=== PATIENT | female | born 1955 | race Caucasian/White ===

== ENCOUNTER 2019-07-17 17:21 | Emergency (ER) | payer OTHER, SELFPAY ==
[2019-07-17 17:25] VITALS: BP 124/61; PULSE 93; RESP 18; TEMP 36.6; O2SAT 100
--- NOTE | 2019-07-17 17:58 | ED.FEMALEGU ---
HPI - Female Genitourinary General Chief complaint: Urogenital-Female Stated complaint: UTI SYMPTOMS Time Seen by Provider: 07/17/19 17:46 Source: patient Mode of arrival: ambulatory Limitations: no limitations History of Present Illness HPI Narrative: 63-year-old female presents for evaluation of symptoms that developed today at 2 PM. She is reporting urinary frequency, urgency, dysuria, one episode of hematuria with blood on the toilet paper. She has experienced some light left-sided abdominal pain and left flank pain. Denies any fever, nausea, vomiting, diarrhea, abnormal swelling, headache, weakness, confusion. History of urinary tract infections in the past. No prior history of renal stones, renal disease. Related Data Home Medications Medication Instructions Recorded Confirmed Mucinex 07/17/19 cevimeline 1 cap PO DAILY 07/17/19 07/17/19 esomeprazole magnesium 40 mg PO DAILY 07/17/19 07/17/19 fluoxetine [Prozac] 40 mg PO DAILY 07/17/19 07/17/19 mometasone [Nasonex] 2 spray INTRANASAL DAILY 07/17/19 07/17/19 triamterene-hydrochlorothiazid 1 tablet PO QAM 07/17/19 07/17/19 vortioxetine [Trintellix] 20 mg PO DAILY 07/17/19 07/17/19 Allergies Allergy/AdvReac Type Severity Reaction Status Date / Time erythromycin base Allergy Unknown Abdominal Verified 07/17/19 17:36 Pain Penicillins Allergy Unknown Hives Verified 07/17/19 17:36 Sulfa (Sulfonamide Allergy Unknown Hives Verified 07/17/19 17:36 Antibiotics) Review of Systems Review of Systems: Narrative: CONSTITUTIONAL: Denies fever, chills, weight loss, or sweats. CARDIOVASCULAR: Denies chest pain, palpitations, or edema. RESPIRATORY: Denies cough or dyspnea. GASTROINTESTINAL: Denies nausea, vomiting, diarrhea. Reports mild left-sided abdominal pain GENITOURINARY: Reports dysuria, hematuria, urinary frequency, malordous urine SKIN: Denies rash or itching. MUSCULOSKELETAL: Denies joint pain, myalgia, swelling. Reports mild left flank pain. NEUROLOGIC: Denies headache, numbness, or weakness. PSYCHIATRIC: Denies anxiety or depression. All systems reviewed & are unremarkable except as noted in HPI and below PMFSH Comments At the time of my signature, I agree with nursing past medical, surgical, social and family history. There is no relevant family history pertinent to the presenting complaint. Exam Narrative: Exam Narrative: GENERAL: No distress, well appearing, well nourished, alert and calm HEAD: Normocephalic, atraumatic. EYES: Pupils equal, round. Extraocular movements intact. Conjunctivae without redness or drainage. EARS: Tympanic membranes without erythema. TM landmarks intact with good light reflex. Ear canals without discharge. MOUTH: Mucous membranes moist. No lesions. No cyanosis. Dentition grossly normal. THROAT: Oropharynx without signs erythema, exudates or lesions. Tonsils not enlarged. NECK: Supple. No lymphadenopathy. RESPIRATORY: Airway patent. Chest clear to auscultation bilaterally. Breath sounds equal bilaterally. No retractions. CARDIOVASCULAR: Regular rate and rhythm. No murmurs, rubs, gallops, or clicks. Capillary refill <2 seconds. GASTROINTESTINAL: Soft, nontender, non-distended. Bowel sounds normoactive. No masses. No organomegaly. No CVA tenderness MUSCULOSKELETAL: Range of motion grossly normal in all four extremities. Strength grossly normal in all four extremities. No edema. No swelling SKIN: Color normal. Warm and dry. No rashes. NEURO: Alert. Motor intact in all extremities. Muscle tone normal. Course Course Emergency Course: Obtained specimen for urinalysis and culture. Vital Signs Vital signs: Vital Signs Temperature 97.9 F 07/17/19 17:25 Pulse Rate 93 07/17/19 17:25 Respiratory Rate 18 07/17/19 17:25 Blood Pressure 124/61 07/17/19 17:25 Pulse Oximetry 100 07/17/19 17:25 Temperature 97.9 F 07/17/19 17:25 Pulse Rate 93 07/17/19 17:25 Respiratory Rate 18 07/17/19 17:25 Blood Pressure
== END 2019-07-17 18:12 | disposition home or self-care (01) ==
PROVIDERS: Emergency Provider Nurse Practitioner
DX: N39.0 Urinary tract infection, site not specified (principal); K21.9 Gastro-esophageal reflux disease without esophagitis; F32.9 Major depressive disorder, single episode, unspecified; M41.9 Scoliosis, unspecified
CPT/HCPCS: 81003; 87077; 87086; 87088; 87186; 99213; G0463

== ENCOUNTER 2019-08-07 17:30 | Emergency (ER) | payer OTHER, SELFPAY ==
[2019-08-07 17:32] VITALS: BP 126/82; PULSE 103; RESP 20; TEMP 38.4; O2SAT 96
--- NOTE | 2019-08-07 17:36 | ED.URI ---
HPI - URI/Sore Throat General Chief Complaint: Upper Respiratory Infection Stated Complaint: fever/chills/cough/body aches Time Seen by Provider: 08/07/19 17:37 Source: patient and RN notes reviewed History of Present Illness HPI Narrative: Patient is a 63-year-old female that presents the urgent care with complaints of body aches, fever, chills, nonproductive cough, intermittent nausea. Patient was recently on Cipro and Macrobid for UTI and diverticulitis and finished the medication approximately 2 days ago. Patient states that her flulike symptoms started last night. Patient has not taken anything [id number] for her symptoms. No other acute complaints. No acute distress noted. Patient read the plan of care. Related Data Home Medications Medication Instructions Recorded Confirmed cevimeline 1 cap PO DAILY 07/17/19 07/17/19 esomeprazole magnesium 40 mg PO DAILY 07/17/19 07/17/19 fluoxetine [Prozac] 40 mg PO DAILY 07/17/19 07/17/19 triamterene-hydrochlorothiazid 1 tablet PO QAM 07/17/19 07/17/19 vortioxetine [Trintellix] 20 mg PO DAILY 07/17/19 07/17/19 estradiol [Yuvafem] mcg VAGINAL 08/07/19 mometasone [Nasonex] INTRANASAL 08/07/19 vortioxetine [Trintellix] mg 08/07/19 Allergies Allergy/AdvReac Type Severity Reaction Status Date / Time erythromycin base Allergy Unknown Abdominal Verified 07/17/19 17:36 Pain Penicillins Allergy Unknown Hives Verified 07/17/19 17:36 Sulfa (Sulfonamide Allergy Unknown Hives Verified 07/17/19 17:36 Antibiotics) Review of Systems Review of Systems: Narrative: CONSTITUTIONAL: Reports a fever, chills, sweats EYES: Denies visual changes, redness, or discharge. ENT: Reports of sinus congestion, postnasal drainage, rhinorrhea CARDIOVASCULAR: Denies chest pain, palpitations, or edema. RESPIRATORY: Reports of mild intermittent cough without dyspnea or wheezing GASTROINTESTINAL: Reports of intermittent nausea without vomiting, diarrhea, abdominal pain GENITOURINARY: Denies dysuria or hematuria. SKIN: Denies rash or itching. MUSCULOSKELETAL: Denies back pain, joint pain; reports of body aches NEUROLOGIC: Denies headache, numbness, or weakness. All other systems reviewed are negative, except as documented in HPI. PMFSH Comments At the time of my signature, I reviewed and agree with the nursing past medical, surgical, social, and family history. There is no relevant family history pertinent to the patient complaint. Exam Narrative: Exam Narrative: GENERAL: This is a well-nourished, well-developed patient, appears fatigued and slightly flushed HEAD: normocephalic, atraumatic. EYES: PERRL. Sclera clear/white. Vision is grossly intact. EARS: External ears normal, auditory canals clear and without drainage, TMs normal without perforation. Hearing grossly intact. NOSE: External nose normal with no obvious nasal discharge, bilateral erythemic nares with clear rhinorrhea THROAT: Mucous membranes moist, posterior pharynx clear. Moderate postnasal drainage NECK: Neck supple, non-tender without lymphadenopathy CARDIOVASCULAR: Regular rate and rhythm without murmurs, gallops, or rubs. RESPIRATORY: Clear to auscultation. Breath sounds equal bilaterally. No wheezes, rales, or rhonchi. SKIN: warm, intact with no suspicious lesions or rash, good texture and turgor. NEURO: awake, alert, and oriented to person, place and time. There were no obvious focal neurologic abnormalities. EXTREMITIES: No clubbing, cyanosis, or edema. Course Vital Signs Vital signs: Vital Signs Temperature 101.2 F H 08/07/19 17:32 Pulse Rate 103 H 08/07/19 17:32 Respiratory Rate 20 08/07/19 17:32 Blood Pressure 126/82 08/07/19 17:32 Pulse Oximetry 96 08/07/19 17:32 Temperature 101.2 F H 08/07/19 17:32 Pulse Rate 103 H 08/07/19 17:32 Respiratory Rate 20 08/07/19 17:32 Blood Pressure 126/82 08/07/19 17:32 Pulse Oximetry 96 08/07/19 17:32 Reviewed MDM - URI/Sore Throat MDM Narrati
== END 2019-08-07 18:03 | disposition home or self-care (01) ==
PROVIDERS: Emergency Provider Nurse Practitioner Family
DX: J10.1 Influenza due to other identified influenza virus with other respiratory manifestations (principal); K21.9 Gastro-esophageal reflux disease without esophagitis; F32.9 Major depressive disorder, single episode, unspecified
CPT/HCPCS: 87804; 99213; G0463

== ENCOUNTER 2019-10-21 11:20 | Emergency (ER) | payer OTHER, SELFPAY ==
[2019-10-21 11:31] VITALS: BP 146/57; PULSE 83; RESP 18; TEMP 36.6; O2SAT 100
--- NOTE | 2019-10-21 11:39 | ED.GENADULT ---
HPI - General Adult General Chief complaint: Urogenital-Female Stated complaint: possible Uti Time Seen by Provider: 10/21/19 11:39 Source: patient Mode of arrival: ambulatory Limitations: no limitations History of Present Illness HPI narrative: 63-year-old female patient presents to the [facility] with complaints of urinary symptoms that started this morning. Patient states she has had some lower abdominal discomfort, pain with urination, and urgency and frequency of urination. Patient denies any fevers, nausea, vomiting or diarrhea. Denies any low back pain. Denies any chest pain or shortness of breath. Patient states that she gets these often and does feel like one is starting at this time. Denies taking anything for her symptoms today. Related Data Home Medications Medication Instructions Recorded Confirmed cevimeline 1 cap PO DAILY 07/17/19 10/21/19 esomeprazole magnesium 40 mg PO DAILY 07/17/19 10/21/19 fluoxetine [Prozac] 40 mg PO DAILY 07/17/19 10/21/19 triamterene-hydrochlorothiazid 1 tablet PO QAM 07/17/19 10/21/19 vortioxetine [Trintellix] 20 mg PO DAILY 07/17/19 10/21/19 estradiol [Yuvafem] 10 mcg DAILY 08/07/19 10/21/19 mometasone [Nasonex] 50 mcg INTRANASAL DAILY 08/07/19 10/21/19 Allergies Allergy/AdvReac Type Severity Reaction Status Date / Time erythromycin base Allergy Unknown Abdominal Verified 10/21/19 11:24 Pain Penicillins Allergy Unknown Hives Verified 10/21/19 11:24 Sulfa (Sulfonamide Allergy Unknown Hives Verified 10/21/19 11:24 Antibiotics) Review of Systems Review of Systems: Narrative: CONSTITUTIONAL: Denies fever, chills, or sweats. EYES: Denies visual changes, redness, or discharge. ENT: Denies rhinorrhea, congestion, sore throat, or otalgia. CARDIOVASCULAR: Denies chest pain, palpitations, or edema. RESPIRATORY: Denies cough or dyspnea. GASTROINTESTINAL: Positive lower abdominal discomfort, nausea, vomiting, or diarrhea. GENITOURINARY: Denies dysuria or hematuria. Positive pain with urination, urgency and frequency that started this morning. SKIN: Denies rash or itching. MUSCULOSKELETAL: Denies back pain, joint pain, or myalgia. NEUROLOGIC: Denies headache, numbness, or weakness. PSYCHIATRIC: Denies anxiety or depression. PMFSH Social History Social History Gender identity (if verbalized by the patient): Female Comments At the time of my signature I agree with nursing past medical history, surgical, social, and family history. There is no relevant family history pertinent to the presenting complaint. Exam Narrative: Exam Narrative: GENERAL: Well-appearing, well-nourished, and in no acute distress. HEAD: Normocephalic, atraumatic. EYES: PERRLA and EOMI. ENT: Nares clear, no rhinorrhea or epistaxis. Mucous membranes moist. NECK: Supple. No lymphadenopathy CHEST: Clear to auscultation. No respiratory distress. HEART: Regular rate and rhythm. No murmur heard. Normal peripheral pulses. ABDOMEN: Soft, nontender, nondistended, normal active bowel sounds. No CVA tenderness on percussion. EXTREMITIES: Normal range of motion. No edema. SKIN: Warm, dry, no rash. NEURO: No focal deficits. Alert and oriented x3. Course Vital Signs Vital signs: Vital Signs Temperature 36.6 C 10/21/19 11:31 Pulse Rate 83 10/21/19 11:31 Respiratory Rate 18 10/21/19 11:31 Blood Pressure 146/57 H 10/21/19 11:31 Pulse Oximetry 100 10/21/19 11:31 Temperature 36.6 C 10/21/19 11:31 Pulse Rate 83 10/21/19 11:31 Respiratory Rate 18 10/21/19 11:31 Blood Pressure 146/57 H 10/21/19 11:31 Pulse Oximetry 100 10/21/19 11:31 Vital signs reviewed. The patient has been informed that they may have pre-hypertension or Hypertension based on a BP reading in the department. I recommend that the patient call the primary care provider listed on their discharge instructions or a physician of their choice this week to arrange
== END 2019-10-21 12:19 | disposition home or self-care (01) ==
PROVIDERS: Emergency Provider Nurse Practitioner Family
DX: N30.01 Acute cystitis with hematuria (principal); K21.9 Gastro-esophageal reflux disease without esophagitis; Z96.652 Presence of left artificial knee joint
CPT/HCPCS: 81003; 87077; 87086; 87088; 87186; 99213; G0463

== ENCOUNTER 2020-02-09 09:07 | Emergency (ER) | payer OTHER, SELFPAY ==
[2020-02-09 09:19] VITALS: BP 134/66; PULSE 81; RESP 20; TEMP 36.9; O2SAT 99
--- NOTE | 2020-02-09 09:33 | ED.FEMALEGU ---
HPI - Female Genitourinary General Chief complaint: Urogenital-Female Stated complaint: POS UTI Time Seen by Provider: 02/09/20 09:25 Source: patient and RN notes reviewed Mode of arrival: ambulatory Limitations: no limitations History of Present Illness HPI Narrative: Patient presents today complaining of dysuria, frequency, urgency, hematuria, lower abdominal pressure since yesterday. Denies back pain or fever. History of UTIs most recently in June and September of this year and was seen at [facility]. He was most recently treated with Augmentin. She took [id number] Azo yesterday, which did provide some relief. She had a right-sided knee replacement 6 weeks ago and is doing well. MD elicited complaint: UTI Related Data Home Medications Medication Instructions Recorded Confirmed cevimeline 1 cap PO DAILY 07/17/19 02/09/20 esomeprazole magnesium 40 mg PO DAILY 07/17/19 02/09/20 fluoxetine [Prozac] 40 mg PO DAILY 07/17/19 02/09/20 triamterene-hydrochlorothiazid 1 tablet PO QAM 07/17/19 02/09/20 vortioxetine [Trintellix] 20 mg PO DAILY 07/17/19 02/09/20 estradiol [Yuvafem] 10 mcg DAILY 08/07/19 02/09/20 Allergies Allergy/AdvReac Type Severity Reaction Status Date / Time erythromycin base Allergy Unknown Abdominal Verified 02/09/20 09:17 Pain Penicillins Allergy Unknown Hives Verified 02/09/20 09:17 Sulfa (Sulfonamide Allergy Unknown Hives Verified 02/09/20 09:17 Antibiotics) Review of Systems Review of Systems: Narrative: CONSTITUTIONAL: Denies body aches, fever, chills, or sweats. EYES: Denies visual changes, redness, or discharge. ENT: Denies rhinorrhea, congestion, sore throat, or otalgia. CARDIOVASCULAR: Denies chest pain, palpitations, or edema. RESPIRATORY: Denies cough or dyspnea. GASTROINTESTINAL: Denies abdominal pain, nausea, vomiting, or diarrhea. GENITOURINARY: + Dysuria, hematuria, frequency, urgency, lower abdominal pressure. SKIN: Denies rash, itching, or wounds. MUSCULOSKELETAL: Denies back pain, joint pain, or myalgia. NEUROLOGIC: Denies headache, numbness, tingling, or weakness. PSYCH: Denies depression or anxiety. [facility] Past Medical History Medical History (Updated 02/09/20 @ 09:42 by Samira Diaz, SALLIE, ) Depression GERD (gastroesophageal reflux disease) Hypertension Surgical History Surgical History (Updated 02/09/20 @ 09:41 by Samira Diaz, SALLIE, ) History of bilateral knee replacement Social History Social History Gender identity (if verbalized by the patient): Female Comments At time of signature, I have reviewed and agree with nursing past medical, surgical, social and family history unless otherwise noted. Please see nursing chart for further information. There is no relevant family history pertinent to the presenting complaint Exam Narrative: Exam Narrative: GENERAL: Well-appearing, well-nourished, and in no acute distress. HEAD: Normocephalic, atraumatic. EYES: EOMI. No redness or drainage. Conjunctivae normal. ENT: Mucous membranes pink and moist. NECK: Normal AROM. CHEST: No respiratory distress. Clear to auscultation. HEART: Regular rate and rhythm. No murmur appreciated. Normal peripheral pulses. ABDOMEN: Soft, nontender, nondistended, normal active bowel sounds. -CVAT MUSCULOSKELETAL: No bony tenderness. EXTREMITIES: Normal range of motion. No edema. SKIN: Warm, dry, no rash. Capillary refill normal. Normal skin turgor. NEURO: No focal deficits. Alert and oriented x3. Gait steady. PSYCH: Normal affect. No signs of depression or anxiety. Course Vital Signs Vital signs: Vital Signs Temperature 98.4 F 02/09/20 09:19 Pulse Rate 81 02/09/20 09:19 Respiratory Rate 02/09/20 09:19 Blood Pressure 134/66 02/09/20 09:19 Pulse Oximetry 99 02/09/20 09:19 Temperature 98.4 F 02/09/20 09:19 Pulse Rate 81 02/09/20 09:19 Respiratory Rate 02/09/20
== END 2020-02-09 09:39 | disposition home or self-care (01) ==
PROVIDERS: Emergency Provider Nurse Practitioner
DX: N30.01 Acute cystitis with hematuria (principal); F32.9 Major depressive disorder, single episode, unspecified; K21.9 Gastro-esophageal reflux disease without esophagitis; I10 Essential (primary) hypertension; Z96.653 Presence of artificial knee joint, bilateral
CPT/HCPCS: 81003; 87077; 87086; 87088; 87186; 99213; G0463

== ENCOUNTER 2020-07-17 08:51 | Emergency (ER) | payer OTHER, SELFPAY ==
[2020-07-17 09:10] VITALS: BP 92/75; PULSE 64; RESP 16; TEMP 36.9; O2SAT 98
--- NOTE | 2020-07-17 09:36 | ED.URI ---
HPI - URI/Sore Throat General Chief Complaint: Upper Respiratory Infection Stated Complaint: swollen glands/throat pressure/congestion Source: patient and RN notes reviewed Limitations: no limitations History of Present Illness HPI Narrative: The patient, a non-smoker/nondrinker previously mostly healthy, presents with scratchy throat and neck. Patient states her past history is remarkable for having had Covid late last year. She now has 1/2 week history of mild voice hoarseness, submental lymph node swelling, and mostly night time nonproductive cough. Symptoms are mild, better yesterday-- so she took her first Covid vaccine, worse with position changes. No fever, hoarseness, trismus, toothache, loss of taste/smell, CP, wheezing/sneezing, S OB, rash, N/V/D. Vital signs are remarkable for being afebrile, blood pressure systolic 92, which she says she has had in the past Related Data Home Medications Medication Instructions Recorded Confirmed cevimeline 1 cap PO DAILY 07/17/19 07/17/20 esomeprazole magnesium 40 mg PO DAILY 07/17/19 07/17/20 fluoxetine [Prozac] 40 mg PO DAILY 07/17/19 07/17/20 triamterene-hydrochlorothiazid 1 tablet PO QAM 07/17/19 07/17/20 vortioxetine [Trintellix] 20 mg PO DAILY 07/17/19 07/17/20 estradiol [Yuvafem] 10 mcg DAILY 08/07/19 07/17/20 guaifenesin [Mucinex] 600 mg PO Q12H PRN 07/17/20 07/17/20 mometasone [Nasonex] 2 spray INTRANASAL DAILY PRN 07/17/20 07/17/20 Allergies Allergy/AdvReac Type Severity Reaction Status Date / Time erythromycin base Allergy Unknown Abdominal Verified 07/17/20 08:57 Pain Penicillins Allergy Unknown Hives Verified 07/17/20 08:57 Sulfa (Sulfonamide Allergy Unknown Hives Verified 07/17/20 08:57 Antibiotics) Review of Systems Review of Systems: Narrative: General/Constitutional: No weight loss,fever Eyes: N0: Redness,discharge Ears/Nose/Throat: No: Epistaxis,ear discharge Respiratory: Denies: Hemoptysis Gastrointestinal: No Vomiting, Bleeding-rectal Skin: No Lumps, eruption Neurologic: No Focal Weakness,Sz Hematologic: Denies: Petechiae/Purpura Psychiatric: No: Suicida ideationl All Other Systems: Reviewed and Negative PMFSH Past Medical History Medical History (Updated 07/17/20 @ 10:26 by Aren Ibrahim MD) Depression GERD (gastroesophageal reflux disease) Hypertension Surgical History Surgical History (Updated 02/09/20 @ 09:41 by Samira Diaz, SALLIE, ) History of bilateral knee replacement Social History Social History Gender identity (if verbalized by the patient): Female Comments At time of signature, agree with nursing past medical, surgical, social and family history. There is no relevant family history pertinent to the presenting complaint Exam Narrative: Exam Narrative: General Appearance: Well appearing, Well nourished EYE: PERRLA, Conjunctiva clear Ears: Auditory canal normal, TM normal Nose: Rhinorrhea, Mucousal erythema Mouth/Throat: MM moist, Uvula midline, Pharyngeal erythema w/o exudate Neck: Supple, bilateral submental adenopathy Respiratory: No respiratory distress, Breath sounds equal, Clear to auscultation Cardiovascular: No JVD Musculoskeletal: Non tender, Normal strength Skin: Warm, Dry Neurological: A&O x3, CN II-XII intact Psychiatric: Normal mood, Normal affect Course Vital Signs Vital signs: Vital Signs Temperature 98.5 F 07/17/20 09:10 Pulse Rate 64 07/17/20 09:10 Respiratory Rate 16 07/17/20 09:10 Blood Pressure 92/75 L 07/17/20 09:10 Pulse Oximetry 98 07/17/20 09:10 Temperature 98.5 F 07/17/20 09:10 Pulse Rate 64 07/17/20 09:10 Respiratory Rate 16 07/17/20 09:10 Blood Pressure 92/75 L 07/17/20 09:10 Pulse Oximetry 98 07/17/20 09:10 MDM - URI/Sore Throat Lab Data Labs: Strep Screen Presumptive Negative *(Reference Range: Negat
== END 2020-07-17 09:48 | disposition home or self-care (01) ==
PROVIDERS: Emergency Provider Emergency Medicine
DX: R59.1 Generalized enlarged lymph nodes (principal); F32.9 Major depressive disorder, single episode, unspecified; K21.9 Gastro-esophageal reflux disease without esophagitis; I10 Essential (primary) hypertension; Z86.16 Personal history of COVID-19; Z96.653 Presence of artificial knee joint, bilateral
CPT/HCPCS: 87081; 87880; 99213; G0463

== ENCOUNTER → 2021-08-25 13:42 | Outpatient (CLI) | payer OTHER, SELFPAY ==
--- NOTE | ~2021-08-25 | US_ITS ---
EXAMINATION: US carotid duplex BI EXAM DATE: 08/25/2021 14:01 INDICATION: Arterial blockage . TECHNIQUE: Grayscale, color and pulsed Doppler images of the cervical carotid arteries were obtained . The degree of vessel stenosis is placed in one of the following categories: normal, <50% stenosis, 50-69% stenosis, >=70% stenosis but less than near-occlusion, near-occlusion, or occlusion. Note that percent stenosis relative to normal distal artery lumen diameter is indirectly measured from velocit y measurements as described by Devonte, et al. Radiology 2003; 229:340-346. There is no prior study fo r comparison. FINDINGS: RIGHT SIDE: Right common carotid artery peak systolic velocity (PSV in cm/s): 74 Right bulb/internal carotid artery peak systolic velocity (PSV in cm/s): 89 Right internal carotid artery end diastolic velocity (EDV in cm/s): 35 Right ICA/CCA peak systolic ratio: 1.4 Right external carotid artery peak systolic velocity (PSV in cm/s): 186 Right vertebral artery antegrade flow: yes There is no focal plaque identified. LEFT SIDE: Left common carotid artery peak systolic velocity (PSV in cm/s): 100 Left bulb/internal carotid artery peak systolic velocity (PSV in cm/s): 123 Left internal carotid artery end diastolic velocity (EDV in cm/s): 44 Left ICA/CCA peak systolic ratio: 1.7 Left external carotid artery peak systolic velocity (PSV in cm/s): 153 Left vertebral artery antegrade flow: yes There is no focal plaque identified. IMPRESSION: 1. Normal right internal carotid artery. 2. Normal left internal carotid artery. Reviewed, dictated and finalized at location B.
== END ==
PROVIDERS: Visit Provider Chiropractor
DX: I70.90 Unspecified atherosclerosis (principal)
CPT/HCPCS: 93880

== ENCOUNTER 2021-09-13 23:32 | Emergency (ER) | payer OTHER, SELFPAY ==
--- NOTE | ~2021-09-13 | CT_ITS ---
EXAMINATION: CT abdomen pelvis w con EXAM DATE: 09/14/2021 04:14 INDICATION: RLQ pain, suspect appendicitis TECHNIQUE: Spiral CT of the abdomen and pelvis was performed following intravenous injection of 100 m L Omnipaque 350. Axial, coronal and sagittal images of the abdomen and pelvis were reviewed. The do se-length product (DLP) for this examination was 332.71 mGy-cm. The exposure was tailored according to patient size (auto mA exposure control), and iterative reconstruction (ASIR) was used as additiona l dose reduction technique. There is no prior study for comparison. FINDINGS: The liver, spleen, adrenal glands and pancreas are unremarkable. Gallbladder is unremarkab le. No biliary obstruction. Portal and splenic veins are patent. Kidneys enhance symmetrically. T here is no hydronephrosis. The uterus is unremarkable. The bladder is unremarkable. There is no retroperitoneal or pelvic lymphadenopathy. There is mild scattered arteriosclerotic disease. The appendix is identified, origin indicated on axial image 106, is normal in diameter and appearance . Mild to moderate number of scattered colonic diverticula are present. There is some inflammation, f at stranding along the antimesenteric side of the cecal base, some wall thickening of the cecum. Diff erential diagnosis includes uncomplicated acute diverticulitis and inflammatory adenocarcinoma. No me senteric lymphadenopathy. There is small sliding gastroesophageal hiatal hernia. There is expected amount of colonic stool. No free intraperitoneal gas. The heart is normal in size. There are no pericardial or pleural effu sions. The lung bases are unremarkable. There are no osteoblastic or osteolytic lesions identified. There is moderate thoracolumbar dextroscoliosis. IMPRESSION: 1. Scattered colonic diverticula with mild cecal wall thickening and inflammation. Differential diag nosis includes both acute uncomplicated diverticulitis and inflammatory adenocarcinoma. Normal appen taniya. 2. Small gastroesophageal hiatal hernia. Reviewed, dictated and finalized at location A. IMPRESSION: 1. Scattered colonic diverticula with mild cecal wall thickening and inflammat ion. Differential diagnosis includes both acute uncomplicated diverticulitis an d inflammatory adenocarcinoma. Normal appendix. 2. Small gastroesophageal hiatal hernia.
[2021-09-13 23:55] VITALS: BP 120/51; PULSE 95; RESP 14; TEMP 36.5; O2SAT 99
[2021-09-14 00:08] LABS: Basophils Absolute Auto 0.1 K/mm3 (0.0-0.1); Basophils Percent Auto 0.5 % (0.2-1.2); Eosinophils Absolute Auto 0.4 K/mm3 (0-0.3); Eosinophils Percent Auto 2.7 % (0-4.4); Hematocrit 42.1 % (37.0-47.0); Hemoglobin 13.3 g/dL (12.0-15.0); Immature Granulocyte Absolute 0.05 K/mm3 (0.00-0.031); Immature Granulocyte Percent A 0.3 % (0-0.5); Lymphocytes Absolute Auto 2.28 K/mm3 (0.9-3.2); Lymphocytes Percent Auto 15.1 % (18.3-44.2); Mean Corpuscular HGB Conc 31.6 g/dl (32-36); Mean Corpuscular Hemoglobin 30.5 pg (26-34); Mean Corpuscular Volume 96.6 fl (80-100); Mean Platelet Volume 9.6 fl (7.4-10.4); Monocytes Absolute Auto 1.2 K/mm3 (0.1-0.6); Monocytes Percent Auto 7.6 % (2.6-8.5); Neutrophils Absolute Auto 11.1 K/mm3 (1.3-6.7); Neutrophils Percent Auto 73.8 % (45.5-73.1); Platelet Count Result 356 k/mm3 (150-375); Red Blood Count 4.36 M/mm3 (4.2-5.4); Red Cell Distribution Width 13.1 % (11.5-14.5); White Blood Count 15.1 K/mm3 (4.5-10.0)
[2021-09-14 00:23] LABS: Alanine Aminotransferase 32 U/L (4-35); Albumin Level 4.7 g/dL (3.5-5.1); Alkaline Phosphatase 111 U/L (38-126); Anion Gap 11 mmol/L (8-16); Aspartate Amino Transferase 31 U/L (14-36); Bilirubin,Total 0.8 mg/dL (0.2-1.3); Blood Urea Nitrogen 23 mg/dL (7-17); Carbon Dioxide 27 mmol/L (22-30); Chloride 101 mmol/L (98-107); Estimated CRCL calculation 48 ml/min; Estimated Glomerular Filt Rate > 60; Glucose 160 mg/dL (65-110); Lipase 81 U/L (23-300); Potassium 3.5 mmol/L (3.4-5.0); Sodium 139 mmol/L (137-145)
[2021-09-14 00:34] LABS: Appearance Urine Slightly Cloudy (Clear); Bilirubin Urine Negative (Negative); Color Urine Yellow (Yellow); Glucose Urine UA Negative (Negative); Ketones Urine Negative (Negative); Leukocyte Esterase Ur Trace LEU/UL (Negative); Nitrate Urine Negative (Negative); Protein Urine Negative (Negative); Urobilinogen Urine 0.2 mg/dL (<2.0)
[2021-09-14 00:49] LABS: Bacteria Urine Trace /hpf; Mucus Urine Rare /lpf; Squamous Epithelial Cell Urine Many /hpf (Few); WBC Urine 21-30 /hpf
[2021-09-14 00:51] LABS: Add Urine Microscopic? YES; Blood Urine Trace-Intact (Negative)
[2021-09-14 03:17] VITALS: BP 122/66; PULSE 86; RESP 16; O2SAT 98
--- NOTE | 2021-09-14 03:36 | ED.ABDPAIN ---
HPI - Abdominal Pain General Chief Complaint: Abdominal Pain Stated Complaint: right ABD pain Time Seen by Provider: 09/14/21 03:28 Source: patient, family and RN notes reviewed Limitations: no limitations History of Present Illness HPI narrative: 65-year-old female presenting to the emergency department for evaluation of right lower quadrant pain. Patient states that her right lower quadrant pain started approximately 9 AM and was described as a tinge of pain. Patient states over the course of the day the pain has continued to worsen. Patient does report associated nausea and vomiting. Patient is still passing stool and denies any change in her bowel habits at this time. Patient does have history of endometriosis but denies any abdominal surgeries. Patient reports a family history of appendicitis. Related Data Home Medications Medication Instructions Recorded Confirmed cevimeline 1 cap PO DAILY 07/17/19 07/17/20 esomeprazole magnesium 40 mg PO DAILY 07/17/19 07/17/20 fluoxetine [Prozac] 40 mg PO DAILY 07/17/19 07/17/20 triamterene-hydrochlorothiazid 1 tablet PO QAM 07/17/19 07/17/20 vortioxetine [Trintellix] 20 mg PO DAILY 07/17/19 07/17/20 estradiol [Yuvafem] 10 mcg DAILY 08/07/19 07/17/20 guaifenesin [Mucinex] 600 mg PO Q12H PRN 07/17/20 07/17/20 mometasone [Nasonex] 2 spray INTRANASAL DAILY PRN 07/17/20 07/17/20 Allergies Allergy/AdvReac Type Severity Reaction Status Date / Time erythromycin base Allergy Unknown Abdominal Verified 09/14/21 03:18 Pain Penicillins Allergy Unknown Hives Verified 09/14/21 03:18 Sulfa (Sulfonamide Allergy Unknown Hives Verified 09/14/21 03:18 Antibiotics) Review of Systems Review of Systems: CONSTITUTIONAL: Denies fever, chills, or sweats. EYES: Denies visual changes, redness, or discharge. ENT: Denies rhinorrhea, congestion, sore throat, or otalgia. CARDIOVASCULAR: Denies chest pain, palpitations, or edema. RESPIRATORY: Denies cough or dyspnea. GASTROINTESTINAL: See HPI GENITOURINARY: Denies dysuria or hematuria. SKIN: Denies rash or itching. MUSCULOSKELETAL: Denies back pain, joint pain, or myalgia. NEUROLOGIC: Denies headache, numbness, or weakness. FORMERLY [facility] Past Medical History Medical History (Updated 09/15/21 @ 00:00 by Claudette Iyer) Depression GERD (gastroesophageal reflux disease) Hypertension Surgical History Surgical History (Updated 02/09/20 @ 09:41 by Smaira Diaz, SALLIE, ) History of bilateral knee replacement Social History Social History Gender identity (if verbalized by the patient): Female Exam Narrative: APPEARANCE: Well appearing, no pain, no distress, well-nourished. HEAD: normocephalic, atraumatic. EYES: PERRLA/EOMI, conjunctivae clear. NOSE: Normal no drainage RESPIRATORY: Airway patent, respirations nonlabored. Clear to auscultation bilaterally, no rales, rhonchi, wheezing. CARDIOVASCULAR: Regular rate and rhythm without murmurs rubs or gallops. ABDOMINAL: Soft abdomen, decreased bowel sounds, lower quadrant tenderness. Positive Rovsing sign MUSCULOSKELETAL: Moves all extremities. Strength/ROM intact. NEURO: Alert. Cranial nerves II through XII intact. Grossly intact SKIN: Warm, dry. Normal Color Course Course Emergency Course: Case discussed with GI on-call. They are comfortable with the patient having close follow-up with GI as outpatient. Patient is being treated for diverticulitis. Patient was updated on the results of the CT and labs. Patient was updated on the results of the CT scan including the possibility of adenocarcinoma. Patient was updated on reasons to return to the emergency department. All questions and concerns were addressed. Patient was well-appearing at time of discharge from the emergency department. Vital Signs Vital signs: Vital Signs Temperature 97.7 F 09/13/21 23:55 Pulse Rate 95 09/13/21 23:55 Respiratory Rate 14 09/13/21 23:55
[2021-09-14] MEDS: SODIUM CHLORIDE 0.9% IV 1,000 ML 999 ML IV CONT (03:54)
[2021-09-14] MEDS: HYDROmorphone HCL INJ (*CRX) 1 MG/ML SYR 0.5 MG IV PUSH (03:54)
[2021-09-14] MEDS: ONDANSETRON INJ 4 MG/2 ML VIAL IV PUSH (03:54)
[2021-09-14 04:59] VITALS: BP 120/54; PULSE 79; RESP 18; O2SAT 95
[2021-09-14 06:08] VITALS: BP 125/72; PULSE 77; RESP 18; O2SAT 97
[2021-09-14 06:45] VITALS: BP 106/67; PULSE 79; RESP 16; O2SAT 95
[2021-09-14 07:32] VITALS: BP 106/67; PULSE 73; RESP 16; O2SAT 98
== END 2021-09-14 07:33 | disposition home or self-care (01) ==
PROVIDERS: Emergency Provider Emergency Medicine
DX: K57.92 Diverticulitis of intestine, part unspecified, without perforation or abscess without bleeding (principal); I10 Essential (primary) hypertension; K21.9 Gastro-esophageal reflux disease without esophagitis; F32.A Depression, unspecified; Z96.653 Presence of artificial knee joint, bilateral; K44.9 Diaphragmatic hernia without obstruction or gangrene
CPT/HCPCS: 36415; 74177; 80053; 81001; 83690; 85025; 87086; 96361; 96374; 96375; 99284; J1170; J2405; J7030; Q9967

== ENCOUNTER 2023-11-01 15:43 | Outpatient (CLI) | payer MEDICARE, OTHER, SELFPAY ==
--- NOTE | ~2023-11-01 | XR_ITS ---
Lumbosacral Spine: AP and lateral views Clinical History: Pain Findings: There is 39 degree dextroscoliosis, apex at L3. There is severe facet arthropathy, especial ly at L3-L4, L4-L5, L5-S1. There is 9 mm anterolisthesis of L5 over S1. There is severe degenerative disc narrowing from L3 through S1. The sacroiliac joints are normally outlined. Impression: Dextroscoliosis and severe degenerative spondylosis, as detailed above. 9 mm anterolisthesis of L5 over S1. Reviewed, dictated and finalized at location M. Impression: Dextroscoliosis and severe degenerative spondylosis, as detailed above. 9 mm anterolisthesis of L5 over S1.
--- NOTE | ~2023-11-01 | XR_ITS ---
AP and lateral views of the right hip Clinical history: Pain Findings: No acute fracture or dislocation is seen. Osseous alignment is anatomic. Right hip joint sp manny probably intact. Soft tissues are unremarkable. Impression: No significant abnormality is seen. Evaluation of the right hip is suboptimal due to overlying pannus /patient body habitus. Reviewed, dictated and finalized at [facility]. Impression: No significant abnormality is seen. Evaluation of the right hip is suboptimal d ue to overlying pannus/patient body habitus.
== END 2023-11-01 15:44 ==
PROVIDERS: PCP Chiropractor; Visit Provider Chiropractor
DX: M43.06 Spondylolysis, lumbar region (principal); M41.87 Other forms of scoliosis, lumbosacral region
CPT/HCPCS: 72110; 73502

== ENCOUNTER 2023-11-09 07:14 | Outpatient (CLI) | payer MEDICARE, OTHER, SELFPAY ==
--- NOTE | ~2023-11-09 | MR_ITS ---
MRI of the lumbar spine Clinical History: Radiculopathy Technique: Axial T2-weighted images, and sagittal T1-weighted, T2-weighted, and T2 fat-sat images wer e acquired. Findings: There are bilateral L5 pars interarticularis defects, with 7 mm anterolisthesis of L5 over S1. There are type III Modic changes about the T12-L1 disc space. There are type I Modic changes abou t the L1-L2 disc space. No suspicious marrow signal abnormality seen. At L1-L2, there is minimal disc bulge and moderate facet arthropathy. No central canal stenosis. Ther e is moderate left neural foraminal narrowing. Right neural foramen preserved. At L2-L3, there is no disc bulge or herniation. There is moderate facet arthropathy. No central canal stenosis or definite neural foraminal narrowing. At L3-L4, there is advanced degenerative disc narrowing. There is minimal disc bulge with advanced fa cet arthropathy. No central canal stenosis. There is moderate left neural foraminal narrowing. Right neural foramen. At L4-L5, there is minimal disc bulge with severe facet arthropathy. No central canal stenosis. There is mild right neural foraminal narrowing. Left neural foramen preserved. At L5-S1, there is severe degenerative disc narrowing with disc bulge/uncovering and severe facet art hropathy. No drake central canal stenosis. There is severe right neural foraminal narrowing, and mode rate to severe left neural foraminal narrowing. Paravertebral soft tissues are unremarkable. Impression: Bilateral L5 pars interarticular is defects, with 7 mm anterolisthesis of L5 over S1. Moderate degenerative spondylosis, as above, with multilevel neural foraminal narrowing. Reviewed, dictated and finalized at [facility]. Impression: Bilateral L5 pars interarticular is defects, with 7 mm anterolisthesis of L5 ov er S1. Moderate degenerative spondylosis, as above, with multilevel neural foraminal n arrowing.
== END 2023-11-09 07:15 ==
LOC: MICIMG 07:17
PROVIDERS: PCP Chiropractor
DX: M51.36 Other intervertebral disc degeneration, lumbar region (principal); M48.061 Spinal stenosis, lumbar region without neurogenic claudication; M54.17 Radiculopathy, lumbosacral region; R26.9 Unspecified abnormalities of gait and mobility; M51.26 Other intervertebral disc displacement, lumbar region; M43.16 Spondylolisthesis, lumbar region
CPT/HCPCS: 72148

== ENCOUNTER 2024-11-26 14:22 | Emergency (ER) | payer MEDICARE, SELFPAY ==
[2024-11-26 14:36] VITALS: BP 145/119; PULSE 92; RESP 16; TEMP 36.6; O2SAT 98
[2024-11-26 14:48] VITALS: BP 124/82
[2024-11-26 14:48] LABS: EDUAAPPEAR Cloudy; EDUABILI Negative (Negative); EDUABLOOD 2+ (Negative); EDUACOLOR1 Yellow; EDUAGLUCOSE Negative (Negative); EDUAKETONE Negative (Negative); EDUALEUKO 1+ (Negative); EDUANITRATE Negative (Negative); EDUAPH 6.0; EDUAPROTEIN Negative (Negative); EDUASPGRAVITY 1.020; EDUAUROBILI 0.2
--- NOTE | 2024-11-26 15:03 | ED.FEMALEGU ---
HPI - Female Genitourinary General Chief complaint: Urogenital-Female Stated complaint: UTI SYMPTOMS Time Seen by Provider: 11/26/24 14:40 Source: patient Mode of arrival: ambulatory Limitations: no limitations History of Present Illness HPI Narrative: 69-year-old female presents with complaint of dysuria, urgency, frequency, abdominal bloating starting yesterday. Afebrile. Denies nausea vomiting. No flank pain. Patient concern for urinary tract infection. All systems reviewed and negative except as noted above. Related Data Home Medications ?Medication ?Instructions ?Recorded ?Confirmed ?Last Taken ?Type esomeprazole magnesium 40 mg 40 mg PO DAILY 07/17/19 11/26/24 Unknown History capsule,delayed release fluoxetine 40 mg capsule (Prozac) 40 mg PO DAILY 07/17/19 11/26/24 Unknown History triamterene 37.5 1 tablet PO QAM 07/17/19 11/26/24 Unknown History mg-hydrochlorothiazide 25 mg tablet estradiol 10 mcg vaginal tablet 10 mcg vaginal DAILY 08/07/19 11/26/24 Unknown History (Yuvafem) mometasone 50 mcg/actuation nasal 2 spray intranasal DAILY PRN 07/17/20 11/26/24 Unknown History spray (Nasonex) Congestion ashwagandha Complex 11/26/24 Unknown History calcium lactate 11/26/24 Unknown History cataplex B-Care 11/26/24 Unknown History xgujprfrmffe-cavweezceshm-xuyltdzvp 1 applic topical DAILY 11/26/24 11/26/24 Unknown History 0.01 %-4 %-0.05 % topical cream (Tri-Yohana) guaifenesin 1,200 mg tablet, 1,200 mg PO BID 11/26/24 11/26/24 Unknown History extended release 12 hr (Mucus Relief ER) neuro Regenex 11/26/24 Unknown History nutrofol PO DAILY 11/26/24 Unknown History oliprima EPA/DHA 11/26/24 Unknown History rhodiola & Schisandra 11/26/24 Unknown History solray D3 & K12 Accokeek 11/26/24 Unknown History ther worx protect 11/26/24 Unknown History whole body collagen 11/26/24 Unknown History Allergies Allergy/AdvReac Type Severity Reaction Status Date / Time trimethoprim Allergy Mild rash Verified 11/26/24 14:41 erythromycin base Allergy Unknown Abdominal Verified 11/26/24 14:30 Pain Penicillins Allergy Unknown Hives Verified 11/26/24 14:30 Sulfa (Sulfonamide Allergy Unknown Hives Verified 11/26/24 14:30 Antibiotics) Review of Systems Review of Systems: CONSTITUTIONAL: Denies fever, chills, or sweats. EYES: Denies visual changes, redness, or discharge. ENT: Denies rhinorrhea, congestion, sore throat, or otalgia. CARDIOVASCULAR: Denies chest pain, palpitations, or edema. RESPIRATORY: Denies cough or dyspnea. GASTROINTESTINAL: Denies abdominal pain, nausea, vomiting, or diarrhea. GENITOURINARY: Reports dysuria, urgency, frequency. Denies hematuria. SKIN: Denies rash or itching. MUSCULOSKELETAL: Denies back pain, joint pain, or myalgia. NEUROLOGIC: Denies headache, numbness, or weakness. PSYCHIATRIC: Denies anxiety or depression. All other systems reviewed are negative, except as documented in HPI. FOR[facility]LY [facility] Past Medical History Medical History (Updated 11/26/24 @ 14:48 by Dot Salinas NP) Depression GERD (gastroesophageal reflux disease) Hypertension Surgical History Surgical History (Updated 02/09/20 @ 09:41 by Samira Diaz, SALLIE, ) History of bilateral knee replacement Social History Social History Gender identity (if verbalized by the patient): Female Comments At time of signature, agree with nursing past medical, surgical, social and family history. There is no relevant family history pertinent to the presenting complaint. Exam Narrative: GENERAL: This is a well-nourished, well-developed patient, in no apparent distress. HEAD: normocephalic, atraumatic. EYES: PERRL. Sclera clear/white. Vision is grossly intact. EARS: External ears normal NOSE: External nose normal NECK: Neck supple, non-tender without lymphadenopathy, masses or thyromegaly. CARDIOVASCULAR: Regular rate and rhythm without murmurs, gallops, or rubs. RESPIRATORY: Clear to auscultation. Breath sounds equal bilaterally. No wheezes, rales, or rhonchi. SKIN: warm, Dry, intact with no suspicious lesions or rash, good texture and turgor. NEURO: awake, alert, and oriented to person, place and time. There were no obvious focal neurologic abnormalities. EXTREMITIES: No joint tenderness, effusion, or edema noted. No calf tenderness. Negative Homans sign bilaterally. BACK: No CVA tenderness. Course Course Level of Care: Express Care Visit Vital Signs Vital signs: Vital Signs Temperature 36.6 C 11/26/24 14:36 Pulse Rate 92 11/26/24 14:36 Respiratory Rate 16 11/26/24 14:36 Blood Pressure 145/119 H 11/26/24 14:36 Pulse Oximetry 98 11/26/24 14:36 Temperature 36.6 C 11/26/24 14:36 Pulse Rate 92 11/26/24 14:36 Respiratory Rate 16 11/26/24 14:36 Blood Pressure 124/82 11/26/24 14:48 Pulse Oximetry 98 11/26/24 14:36 Reviewed MDM - Female Genitourinary MDM Narrative Medical decision making narrative: Urinalysis positive leukocytes, positive blood. Will treat with Macrobid due to several antibiotic allergies. Urine culture ordered. Patient is alert, nontoxic. Lab Data Labs: Lab Results 11/26/24 Range/Units 14:43 POC Urine Color Yellow POC Urine Clarity Cloudy POC Urine pH 6.0 POC Ur Specif [place] 1.020 POC Urine Protein Negative (Negative) POC Ur Glucose (UA) Negative (Negative) POC Urine Ketones Negative (Negative) POC Urine Blood 2+ (Negative) POC Urine Nitrite Negative (Negative) POC Urine Bilirubin Negative (Negative) POC Urine Urobilinogen 0.2 POC U Leukocyte Esteras 1+ (Negative) Discharge Plan Discharge Clinical Impression: Urinary tract infection Patient Disposition: Home Condition: Stable Instructions: Urinary Tract Infection in Women (ED) Additional Instructions: Take antibiotic as prescribed until gone. Get least 64 oz of water a day. May take [id number]-ojw-wzgwzzz azo as needed for urinary symptoms. Take as directed on packaging. See your primary care physician if symptoms are not improving. If you have severe pain, vomiting, fever go to the ER. Patient Language: Lebanese Prescriptions: New nitrofurantoin monohyd/m-cryst [Macrobid] 100 mg capsule 100 mg PO Q12H 7 Days Qty: 14 0RF No Action fluoxetine [Prozac] 40 mg Capsule 40 mg PO DAILY esomeprazole magnesium 40 mg Capsule,Delayed Release(Dr/Ec) 40 mg PO DAILY triamterene-hydrochlorothiazid 37.5-25 mg Tablet 1 tablet PO QAM estradiol [Yuvafem] 10 mcg tablet 10 mcg vaginal DAILY mometasone [Nasonex] 50 mcg/actuation [place],Non-Aerosol 2 spray INTRANASAL DAILY PRN (Reason: Congestion) Tri-Yohana 0.01-4-0.05 % cream 1 applic topical DAILY Rx Instructions: apply at least 30 minutes before bedtime guaifenesin [Mucus Relief ER] 1,200 mg tablet extended release 12hr 1,200 mg PO BID nutrofol PO DAILY solray D3 & K12 Accokeek ther worx protect whole body collagen ashwagandha Complex rhodiola & Schisandra neuro Regenex calcium lactate cataplex B-Care oliprima EPA/DHA Follow-up/Referrals: Hellen,Sylvester [Other] Time of Disposition: 14:49
== END 2024-11-26 14:53 | disposition home or self-care (01) ==
PROVIDERS: Emergency Provider Nurse Practitioner Family
DX: N39.0 Urinary tract infection, site not specified (principal); I10 Essential (primary) hypertension; K21.9 Gastro-esophageal reflux disease without esophagitis; Z96.653 Presence of artificial knee joint, bilateral; F32.A Depression, unspecified
CPT/HCPCS: 81003; 87086; 99213; G0463

== ENCOUNTER 2025-01-13 15:32 | Outpatient (CLI) | payer MEDICARE, SELFPAY ==
--- NOTE | ~2025-01-13 | XR_ITS ---
[id number] 01/13/2025 16:04 Indication: Cervicalgia Procedure: 4 view cervical spine Comparison: No prior studies for comparison. Findings: There is advanced multilevel uncinate and facet hypertrophy. There is straightening of cervical lordosis. There is degenerative anterolisthesis at C3- 4 and C4-5. There is near complete loss of disc space at C5-C6. Lung apices are normal. No prevertebral soft tissue swelling. Odontoid process is normal. Lateral masses normally aligned. Impression: 1: Severe cervical spondylosis. Reviewed, dictated and finalized at location A. Impression: 1: Severe cervical spondylosis.
== END 2025-01-13 15:33 | disposition home or self-care (01) ==
PROVIDERS: PCP Chiropractor
DX: M47.812 Spondylosis without myelopathy or radiculopathy, cervical region (principal)
CPT/HCPCS: 72040

== ENCOUNTER 2025-04-30 13:50 | Outpatient (CLI) | payer MEDICARE, SELFPAY ==
--- NOTE | ~2025-04-30 | MR_ITS ---
EXAMINATION: MR brain/brain stem wo con DATE: 04/30/2025 14:28 INDICATION: Memory loss TECHNIQUE: Magnetic resonance imaging (MRI) of the brain and brainstem was performed without intravenous contrast. Sequences included sagittal and axial T1-weighted SE, axial diffusion-weighted FS SE, axial T2*-weighted GRE, axial T2-weighted FLAIR, and axial T2-weighted FSE. Apparent diffusion coefficient (ADC) maps were created. COMPARISON: None. FINDINGS: There are no areas of restricted diffusion to suggest acute infarction. No intracranial hemorrhage or abnormal intracranial mass lesion. A few scattered small foci of nonspecific increased T2-weighted signal intensity in the cerebral white matter, predominantly involving the deep and periventricular white matter which is well within normal limits for age and likely sequela of chronic small vessel ischemic disease.. There are no intraparenchymal signal abnormalities seen on the other pulse sequences. The ventricles are symmetric and normal in size. There are no abnormal extra-axial fluid collections. Flow voids are seen in the cerebral arteries on the T2-weighted sequences consistent with their expe cted patency. Changes of bilateral intraocular lens replacement. Visualized orbits and soft tissues are unremarkable. IMPRESSION: 1. Normal aging brain with mild scattered mesenteric white matter T2 hyperintensity consistent with chronic small vessel ischemic disease. No acute intracranial process. Reviewed, dictated and finalized at location A. 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 Normal aging brain with mild scattered mesenteric white matter T2 hyperinten sity consistent with chronic small vessel ischemic disease. No acute intracrani al process.
== END 2025-04-30 13:51 | disposition home or self-care (01) ==
LOC: MICIMG 13:51
PROVIDERS: PCP Chiropractor
DX: R41.3 Other amnesia (principal); R90.82 White matter disease, unspecified
CPT/HCPCS: 70551